=== PATIENT | female | born 1955 | race Caucasian/White ===

== ENCOUNTER 2021-05-01 10:51 | Inpatient (IN) | payer MEDICARE, BC ==
[2021-05-01 11:28] LABS: #Lymphocytes 1.4 thou/uL (1.20-3.40); #Monocytes 0.6 thou/uL (0.11-0.59); %Basophils 0.3 % (0.0-1.0); %Eosinophils 0.3 % (0.0-10.0); %Lymphocytes 11.5 % (21.0-51.0); %Monocytes 4.7 % (0.0-10.0); %Neutrophils 83.1 % (42.0-75.0); Hemoglobin 12.2 g/dL (12.0-16.0); Mean Corpuscular HGB CONC 33.7 g/dL (32.0-36.0); Mean Corpuscular Volume 89.2 fL (78.0-98.0); Mean Platelet Volume 7.7 fL (7.4-10.4); Platelet Count 255 thou/uL (130-400); RBC Distribution Width 12.9 % (11.5-14.5); Red Blood Cell (RBC) Count 4.07 mill/uL (4.20-5.40)
[2021-05-01 11:45] LABS: ALT (SGPT) 17 U/L (8-55); AST (SGOT) 16 U/L (5-34); Albumin 3.7 g/dL (3.4-4.8); Alkaline Phosphatase 99 U/L (40-110); Anion Gap 16 mmol/L (10-20); BUN (Urea Nitrogen) 23 mg/dL (9.8-20.1); Bilirubin, Total 0.7 mg/dL (0.2-1.2); Calc. Creatinine Clearance 0 mL/min (70-130); Calcium 8.6 mg/dL (7.8-10.44); Carbon Dioxide 17 mmol/L (23-31); Chloride 109 mmol/L (98-107); Globulin 2.5 g/dL (2.4-3.5); Glucose 140 mg/dL (80-115); Potassium 4.5 mmol/L (3.5-5.1); Protein, Total 6.2 g/dL (5.8-8.1); Sodium 137 mmol/L (136-145)
[2021-05-01 15:38] LABS: Bilirubin Negative (Negative); Blood, Urine Negative (Negative); Clarity Clear (Clear); Glucose, Urine (Dipstick) Normal (Negative); Ketone, Urine 20 mg/dL (Negative); Leukocyte Negative Leu/uL (Negative); Nitrite Negative (Negative); Protein, Urine (Dipstick) Negative (Neg-Trace); Specific Gravity, Urine 1.018 (1.002-1.036); Urobilinogen Normal mg/dL (Less than 2); pH, Urine 5.5 (5.0-9.0)
[2021-05-01 18:28] LABS: Amphetamine Not Detected (NotDetected); Barbiturates Screen Not Detected (NotDetected); Benzodiazepine Screen Not Detected (NotDetected); Cocaine Metabolite Screen Not Detected (NotDetected); Methadone Not Detected (NotDetected); Methamphetamine Not Detected (NotDetected); Opiate Screen Not Detected (NotDetected); Oxycodone Screen Not Detected (NotDetected); Phencyclidine (PCP) Not Detected (NotDetected); THC/Cannabinoid Screen Not Detected (NotDetected); Tricyclic Screen Not Detected (NotDetected)
[2021-05-01 18:41] VITALS: BMI 41.0
[2021-05-01] MEDS: Lactated Ringer's 1,000 ML IV SCH (18:42)
[2021-05-01 18:43] LABS: Hemoglobin A1c 5.3 % (4.0-6.0)
[2021-05-01] MEDS: Atorvastatin Calcium 20 MG TAB PO SCH (21:03)
[2021-05-01] MEDS: Acetaminophen 325 MG TAB PO PRN (23:41)
[2021-05-02] MEDS: Lactated Ringer's 1,000 ML IV SCH ×3 (02:20→18:44)
[2021-05-02 05:08] LABS: Anion Gap 8 mmol/L (10-20); BUN (Urea Nitrogen) 13 mg/dL (9.8-20.1); Calc. Creatinine Clearance 115 mL/min (70-130); Calcium 8.1 mg/dL (7.8-10.44); Carbon Dioxide 27 mmol/L (23-31); Chloride 108 mmol/L (98-107); Glucose 121 mg/dL (80-115); Sodium 139 mmol/L (136-145)
[2021-05-02 07:27] LABS: #Lymphocytes 1.8 thou/uL (1.20-3.40); #Monocytes 0.5 thou/uL (0.11-0.59); #Neutrophils 3.8 thou/uL (1.40-6.50); %Basophils 0.6 % (0.0-1.0); %Eosinophils 0.4 % (0.0-10.0); %Monocytes 7.4 % (0.0-10.0); %Neutrophils 61.6 % (42.0-75.0); Hemoglobin 8.4 g/dL (12.0-16.0); Mean Corpuscular HGB CONC 32.6 g/dL (32.0-36.0); Mean Corpuscular Hemoglobin 29.2 pg (27.0-31.0); Mean Corpuscular Volume 89.7 fL (78.0-98.0); Mean Platelet Volume 7.2 fL (7.4-10.4); Platelet Count 212 thou/uL (130-400); RBC Distribution Width 12.5 % (11.5-14.5); Red Blood Cell (RBC) Count 2.86 mill/uL (4.20-5.40); White Blood Cell (WBC) Count 6.1 thou/uL (4.8-10.8)
[2021-05-02] MEDS: Acetaminophen 325 MG TAB PO PRN (08:05)
[2021-05-02 08:35] LABS: SARS-CoV-2 PCR by NAA Not Detected (NotDetected)
[2021-05-02] MEDS ORDERED: Enoxaparin Sodium 40 MG/0.4 ML SYRINGE SC SCH (09:00)
[2021-05-02 09:20] LABS: #Basophils 0.1 thou/uL (0.0-0.2); #Lymphocytes 1.8 thou/uL (1.20-3.40); #Monocytes 0.5 thou/uL (0.11-0.59); #Neutrophils 4.1 thou/uL (1.40-6.50); %Basophils 0.8 % (0.0-1.0); %Eosinophils 0.3 % (0.0-10.0); %Lymphocytes 27.4 % (21.0-51.0); %Monocytes 7.9 % (0.0-10.0); %Neutrophils 63.6 % (42.0-75.0); Hemoglobin 8.9 g/dL (12.0-16.0); Mean Platelet Volume 7.3 fL (7.4-10.4); Platelet Count 253 thou/uL (130-400); RBC Distribution Width 12.7 % (11.5-14.5); Red Blood Cell (RBC) Count 3.05 mill/uL (4.20-5.40); White Blood Cell (WBC) Count 6.4 thou/uL (4.8-10.8)
[2021-05-02] MEDS ORDERED: Fludrocortisone Acetate 0.1 MG TAB PO SCH (15:15)
[2021-05-02] MEDS: Atorvastatin Calcium 20 MG TAB PO SCH (20:05)
[2021-05-03 04:40] LABS: #Basophils 0.1 thou/uL (0.0-0.2); #Lymphocytes 1.8 thou/uL (1.20-3.40); #Monocytes 0.5 thou/uL (0.11-0.59); #Neutrophils 3.9 thou/uL (1.40-6.50); %Basophils 0.8 % (0.0-1.0); %Eosinophils 0.4 % (0.0-10.0); %Lymphocytes 28.8 % (21.0-51.0); %Monocytes 7.5 % (0.0-10.0); %Neutrophils 62.4 % (42.0-75.0); Hemoglobin 7.9 g/dL (12.0-16.0); Mean Corpuscular HGB CONC 33.3 g/dL (32.0-36.0); Mean Corpuscular Hemoglobin 29.5 pg (27.0-31.0); Mean Corpuscular Volume 88.5 fL (78.0-98.0); Mean Platelet Volume 7.6 fL (7.4-10.4); Platelet Count 232 thou/uL (130-400); RBC Distribution Width 12.6 % (11.5-14.5); Red Blood Cell (RBC) Count 2.69 mill/uL (4.20-5.40); White Blood Cell (WBC) Count 6.3 thou/uL (4.8-10.8)
[2021-05-03 04:58] LABS: Anion Gap 11 mmol/L (10-20); BUN (Urea Nitrogen) 8 mg/dL (9.8-20.1); Calc. Creatinine Clearance 142 mL/min (70-130); Calcium 8.3 mg/dL (7.8-10.44); Carbon Dioxide 25 mmol/L (23-31); Chloride 109 mmol/L (98-107); Glucose 105 mg/dL (80-115); Potassium 3.9 mmol/L (3.5-5.1); Sodium 141 mmol/L (136-145)
[2021-05-03] MEDS ORDERED: Fludrocortisone Acetate 0.1 MG TAB PO SCH (09:00)
[2021-05-03] MEDS ORDERED: Ferrous Sulfate 325 MG TAB PO SCH (09:00)
[2021-05-03 12:10] VITALS: BP 129/60; TEMP 98.7
[2021-05-03] MEDS: Acetaminophen 325 MG TAB PO PRN (14:14)
[2021-05-04] MEDS ORDERED: FLU VACC QS2021-22(65YR UP)/PF 240 MCG/0.7 ML SYRINGE IM ONE (09:00)
== END 2021-05-03 14:20 | disposition home or self-care (01) | DRG 312 ==
LOC: ERS 10:51 → EDBD 10:51 → 2SW 16:49 → OBSVTOIN 05-03 10:29
PROVIDERS: ADMIT Family Medicine; ATTEND Family Medicine
DX: I95.1 Orthostatic hypotension (principal); F31.81 Bipolar II disorder; D62 Acute posthemorrhagic anemia; S30.0XXA Contusion of lower back and pelvis, initial encounter; Z66 Do not resuscitate; Z20.822 Contact with and (suspected) exposure to COVID-19; W01.0XXA Fall on same level from slipping, tripping and stumbling without subsequent striking against object, initial encounter; G40.909 Epilepsy, unspecified, not intractable, without status epilepticus; I10 Essential (primary) hypertension; E78.5 Hyperlipidemia, unspecified; Z96.651 Presence of right artificial knee joint; E86.0 Dehydration; I08.3 Combined rheumatic disorders of mitral, aortic and tricuspid valves; E78.00 Pure hypercholesterolemia, unspecified; Y92.002 Bathroom of unspecified non-institutional (private) residence as the place of occurrence of the external cause; Z88.5 Allergy status to narcotic agent; Z90.710 Acquired absence of both cervix and uterus; Z98.51 Tubal ligation status; Z90.89 Acquired absence of other organs; Z80.8 Family history of malignant neoplasm of other organs or systems; Z82.0 Family history of epilepsy and other diseases of the nervous system; Z84.2 Family history of other diseases of the genitourinary system
CPT/HCPCS: 36415; 51701; 70450; 72125; 72170; 74176; 80048; 80053; 80306; 81003; 82550; 83036; 84443; 84484; 85025; 86850; 86900; 86901; 93005; 93306; 93880; 96372; G0378; J1650; J7120; U0003; U0005